=== PATIENT | female | born 1935 | race Caucasian/White ===

== ENCOUNTER → 2017-10-22 | Outpatient (CLI) | payer OTHER ==
[~2017-10-22] MED LIST: ALPRAZOLAM 0.0.25 M1 PO; BYSTOLIC 5 MG5 M1 PO; CALCIUM OYSTER500 MG PO; CIPROFLOXACIN500 M1 PO; D-20002000 UNIT PO; FLAGYL500 MG PO; FLORANEX TABLE1 EAC1 PO; IBUPROFEN200 M2 PO; LOPRESSOR25 PO; MULTIVITAMINS PO; PEPCID40 MG PO; PREVACID15 MG PO; PREVALITE PACKE1 PKT PO; PROBIOTIC1 EAC1 PO; PROTONIX40 M2 PO; VANCOMYCIN100 MG/M1 PO; ZANTAC; ZANTAC 150MG T150 M1 PO; ZANTAC 150MG T150 MG PO
== END ==
LOC: RAD 14:16
DX: Z12.31 Encounter for screening mammogram for malignant neoplasm of breast (principal)

== ENCOUNTER → 2018-10-29 | Outpatient (CLI) | payer OTHER | LOC: RAD 12:15 | DX: Z12.31 Encounter for screening mammogram for malignant neoplasm of breast (principal) ==

== ENCOUNTER 2019-01-02 11:12 | Inpatient (IN) | payer OTHER ==
[~2019-01-02] VITALS: Ht 160 cm; Wt 55.2 kg
[2019-01-02 11:12] VITALS: BP 170/96
[2019-01-02 11:48] LABS: ABSOLUTE NEUTROPHILS 6.5 thou/uL (1.4-8.2); BASOPHILS 0.3 % (0.0-2.0); EOSINOPHILS 0.4 % (0.0-3.0); HEMATOCRIT 37.6 % (37.0-47.0); HEMOGLOBIN 12.8 gm/dL (12.0-15.0); MCH 31.8 pg (26.0-34.0); MCV 93.4 fL (80.0-100.0); MONOCYTES 8.9 % (1.0-8.0); PLATELET COUNT 272 thou/uL (150-400); POLYS 79.4 % (36.0-66.0); RBC 4.03 mil/uL (4.20-5.00); RDW 13.5 % (10.5-14.5); WBC 8.2 thou/uL (4.0-11.0)
[2019-01-02 11:55] LABS: CREATININE 0.9 mg/dL (0.6-1.0); POTASSIUM 3.2 mmol/L (3.5-5.1)
[2019-01-02 12:01] LABS: ALBUMIN 3.2 g/dL (3.4-5.0); TOTAL BILIRUBIN 0.6 mg/dL (<0.1-1.0); TOTAL PROTEIN 8.4 g/dL (6.4-8.2)
[2019-01-02 12:14] LABS: URINE BILIRUBIN NEGATIVE (Negative); URINE BLOOD 1+ (Negative); URINE CLARITY CLOUDY; URINE COLOR YELLOW; URINE GLUCOSE-RANDOM* NEGATIVE (Negative); URINE KETONES NEGATIVE (Negative); URINE LEUKOCYTES-REFLEX 3+ (Negative); URINE NITRITE-REFLEX NEGATIVE (Negative); URINE PROTEIN (DIPSTICK) NEGATIVE (Negative); URINE UROBILINOGEN 0.2 E.U./dl (0.2-1.0)
[2019-01-02 12:22] LABS: CASTS None Seen /LPF (None Seen); CRYSTALS None Seen /LPF (None Seen); SQUAMOUS 0-3 Few /LPF (0-3); URINE WBC-REFLEX >25 Many /HPF (0-5)
[2019-01-02 12:23] LABS: BACTERIA-REFLEX 1-9 Few /HPF (None Seen); URINE RBC 0-2 Rare /HPF (0-2)
[2019-01-02 16:15] VITALS: BP 167/90
[2019-01-02 16:16] VITALS: BP 163/84
[2019-01-02 19:23] VITALS: BP 157/72
[2019-01-03 04:02] VITALS: BP 118/56
[2019-01-03 06:19] LABS: HEMATOCRIT 33.3 % (37.0-47.0); HEMOGLOBIN 11.4 gm/dL (12.0-15.0); MCH 31.8 pg (26.0-34.0); MCHC 34.4 g/dL (28.0-37.0); MCV 92.4 fL (80.0-100.0); RBC 3.6 mil/uL (4.20-5.00); RDW 13.6 % (10.5-14.5)
[2019-01-03 07:27] LABS: CALCIUM 9.2 mg/dL (8.5-10.1); CREATININE 0.8 mg/dL (0.6-1.0); MAGNESIUM 1.9 mg/dL (1.8-2.4); POTASSIUM 3.9 mmol/L (3.5-5.1)
[2019-01-03 08:03] VITALS: BP 144/63
--- NOTE | 2019-01-03 08:45 | EKG ---
[place] [address] [facility] [place] [address] ELECTROCARDIOGRAM REPORT Name: REX DURHAM Room #: 426-P ADM IN M.R.#: [id number] ������������������ Admission: 01/02/19 ������������������ Attend Phys: Kevin Enamorado Discharge: ������������������ Date of : 39 Report #: [id number] ����������������������������������������������������������������� [id number] THIS REPORT FOR: //name// [facility] ED Test Date: 2019-01-02 Test Time: 11:38:45 Pat Name: REX DURHAM Department: Room: 426 Gender: F Muleser: : 1935 Requested By: Caleb Davidson Order Number: [id number] MD: Ernesto Pineda Measurements Intervals [place] Rate: 94 P: 76 AL: 205 QRS: -85 QRSD: 99 T: 70 QT: 380 QTc: 476 Interpretive Statements Sinus rhythm Biatrial enlargement Left anterior fascicular block RSR' in V1 or V2, right VCD or RVH Left ventricular hypertrophy Electronically Signed On 01-03-2019 8:45:41 CDT by Ernesto Pineda [email or web address] ��������������������������������������������� <ELECTRONICALLY SIGNED> ���������������������������������������� By: Ernesto Pineda MD ��������������������������������������������� 01/03/19 0845 [id number] Ernesto Pineda MD /[facility]
[2019-01-03 20:07] VITALS: BP 148/68
[2019-01-04 04:06] VITALS: BP 150/70
[2019-01-04 05:29] LABS: HEMATOCRIT 35.4 % (37.0-47.0); MCH 31.8 pg (26.0-34.0); MCV 93.4 fL (80.0-100.0); RBC 3.79 mil/uL (4.20-5.00); RDW 13.7 % (10.5-14.5); WBC 5.1 thou/uL (4.0-11.0)
[2019-01-04 05:50] LABS: CREATININE 0.8 mg/dL (0.6-1.0); POTASSIUM 3.8 mmol/L (3.5-5.1)
[2019-01-04 07:45] VITALS: BP 161/73
[2019-01-04 16:30] VITALS: BP 158/60
[2019-01-04 20:30] VITALS: BP 163/85
[2019-01-05 04:30] VITALS: BP 148/75
[2019-01-05 08:33] VITALS: BP 156/88
[2019-01-05] MEDS ORDERED: SIMETHICON CHEW80 M1 PO (11:57)
[2019-01-05] MEDS ORDERED: TRAMADOL 50 MG50 MG PO (11:57)
[2019-01-05] MEDS ORDERED: FLAGYL500 M1 PO (11:57)
[2019-01-05] MEDS ORDERED: CEFUROXIME500 MG PO (11:57)
[2019-01-05] MEDS ORDERED: ACETAMINOPHEN325 M1 PO (11:57)
[2019-01-05] MEDS ORDERED: ACIDOPHILUS1 EAC4 PO (12:03)
[2019-01-05 12:47] VITALS: BP 156/88
[2019-01-05 12:53] VITALS: BP 156/88
[2019-01-05 13:59] VITALS: BP 156/88
== END 2019-01-05 13:20 | disposition home or self-care (01) | DRG 392 ==
LOC: ER 11:12 → EROBS 13:13 → 4E 13:13 → ENTRNSPT 01-05 13:13 → EDTRNSPTSTS 01-05 13:19 → 4E 01-05 13:20
PROVIDERS: Emergency Medicine; Hospitalist; Internal Medicine; ADMIT Hospitalist
DX: K57.92 Diverticulitis of intestine, part unspecified, without perforation or abscess without bleeding (principal); E46 Unspecified protein-calorie malnutrition; E87.1 Hypo-osmolality and hyponatremia; N30.00 Acute cystitis without hematuria; K21.9 Gastro-esophageal reflux disease without esophagitis; I16.0 Hypertensive urgency; E87.6 Hypokalemia; K59.00 Constipation, unspecified; E55.9 Vitamin D deficiency, unspecified; D64.9 Anemia, unspecified; I48.0 Paroxysmal atrial fibrillation; F41.9 Anxiety disorder, unspecified; Z88.1 Allergy status to other antibiotic agents; Z88.2 Allergy status to sulfonamides; Z88.8 Allergy status to other drugs, medicaments and biological substances; Z79.899 Other long term (current) drug therapy; Z87.891 Personal history of nicotine dependence; Z68.21 Body mass index [BMI] 21.0-21.9, adult
CPT/HCPCS: 10783

== ENCOUNTER → 2019-05-10 | Outpatient (CLI) | payer OTHER ==
[~2019-05-10] MED LIST changes: +ACETAMINOPHEN325 M1 PO; +ACIDOPHILUS1 EAC4 PO; +CEFUROXIME500 MG PO; +FLAGYL500 M1 PO; +SIMETHICON CHEW80 M1 PO; +TRAMADOL 50 MG50 MG PO
== END ==
LOC: RAD 14:03
DX: R92.1 Mammographic calcification found on diagnostic imaging of breast (principal)

== ENCOUNTER → 2020-06-11 | Outpatient (CLI) | payer OTHER | LOC: RAD 13:10 | PROVIDERS: ATTEND Obstetrics & Gynecology | DX: Z12.31 Encounter for screening mammogram for malignant neoplasm of breast (principal) ==

== ENCOUNTER → 2021-09-11 | Outpatient (CLI) | payer OTHER | LOC: RAD 13:48 | PROVIDERS: ATTEND Internal Medicine Rheumatology | DX: Z12.31 Encounter for screening mammogram for malignant neoplasm of breast (principal) ==